=== PATIENT | female | born 1995 | race Caucasian/White ===

== ENCOUNTER 2017-10-02 12:54 | Emergency (ER) | payer BC ==
[2017-10-02 13:20] VITALS: BP 141/77
--- NOTE | 2017-10-02 13:42 | UC ---
Throat Pain/Nasal Raul HPI - HPI Summary HPI Summary: Pt c/o gradual onset of sore throat, generalized malaise, nasal congestion X 1 week. - History of Current Complaint Chief Complaint: UCRespiratory Stated Complaint: SORE THROAT,COLD SYMPTOMS Time Seen by Provider: 10/02/17 13:11 Hx Obtained From: Patient Hx Last Menstrual Period: 2016 ?: No Onset/Duration: Gradual Onset, Lasting Days, Still Present Severity: Mild Pain Intensity: 5 Associated Signs & Symptoms: Positive: Dysphagia - Epiglottits Risk Factors Epiglottis Risk Factors: Negative - Allergies/Home Medications Allergies/Adverse Reactions: Allergies Allergy/AdvReac Type Severity Reaction Status Date / Time No Known Allergies Allergy Unverified 10/02/17 13:14 Home Medications: Home Medications Escitalopram (NF) [Lexapro 5 mg (NF)] 15 mg PO DAILY 10/02/17 [History Confirmed 10/02/17] Etonogestrel [Nexplanon] 68 mg IMPLANT ONCE 10/02/17 [History Confirmed 10/02/17 ] PMH/Surg Hx/FS Hx/Imm Hx Previously Healthy: Yes - Surgical History Surgical History: None - Family History Known Family History: Positive: Cardiac Disease - Social History Occupation: Student Lives: Dormitory/Roommates Alcohol Use: Occasionally Substance Use Type: None Smoking Status (MU): Never Smoked Tobacco Have You Smoked in the Last Year: No - Immunization History Vaccination Up to Date: Yes Review of Systems Constitutional: Fatigue Skin: Negative Eyes: Negative ENT: Sore Throat Respiratory: Negative Cardiovascular: Negative Gastrointestinal: Negative Genitourinary: Negative Motor: Negative Neurovascular: Negative Musculoskeletal: Myalgia Neurological: Negative Psychological: Negative Is Patient Immunocompromised?: No All Other Systems Reviewed And Are Negative: Yes Physical Exam Triage Information Reviewed: Yes Appearance: Well-Appearing Vital Signs: Initial Vital Signs Temp 98 F 10/02/17 13:16 Pulse 77 10/02/17 13:16 Resp 20 10/02/17 13:16 BP 141/77 10/02/17 13:16 Pulse Ox 99 10/02/17 13:16 Vital Signs Reviewed: Yes Eye Exam: Normal ENT Exam: Other ENT: Positive: Pharyngeal erythema Dental Exam: Normal Neck exam: Normal Respiratory Exam: Normal Cardiovascular Exam: Normal Musculoskeletal Exam: Normal Neurological Exam: Normal Psychological Exam: Normal Skin Exam: Normal Diagnostics - Laboratory Diagnostic Studies Completed/Ordered: rapid strep: negative Throat Pain/Nasal Course/Dx - Differential Dx/Diagnosis Differential Diagnosis/HQI/PQRI: Pharyngitis, Tonsillitis, URI Provider Diagnoses: Pharyngitis Discharge - Discharge Plan Condition: Stable Disposition: HOME Patient Education Materials: Pharyngitis (ED) Referrals: Reina Beltrán MD [Primary Care Provider] - If Needed
== END 2017-10-02 13:59 | disposition home or self-care (01) ==
LOC: UCCORT 12:54
DX: J02.9 Acute pharyngitis, unspecified (principal)
CPT/HCPCS: 36415; 86308; 87651; 99201; G0463